=== PATIENT | female | born 1995 | race Caucasian/White ===

== ENCOUNTER 2019-12-21 10:00 | Outpatient (RCR) | payer OTHER, SELFPAY ==
--- NOTE | ~2019-12-21 | US_ITS ---
EXAMINATION: US OB limited w BPP DATE: 12/21/2019 11:22 INDICATION: Post dates, third trimester TECHNIQUE: Real-time pelvic ultrasound was performed. The interpreting radiologist was not present fo r the study. COMPARISON: None. FINDINGS: There is a single living fetus in vertex presentation. The placenta is fundal. heart rate is 12 9 beats per minute (bpm). The amniotic fluid index is 6.7 cm which is low (normal range: 7.0 cm to 19 .4 cm). Biophysical profile performed by the technologist: breathing (30 sec sustained breathing in 30 minutes): 0 out of 2 movement (3 gross body movements in 30 minutes): 2 out of 2 tone (one episode of vcoeexq-mvorndwvw-ajwmiew limb movement): 2 out of 2 Amniotic fluid pocket (2 cm): 2 out of 2 Total score: 6 out of 8 IMPRESSION: 1. Single living fetus in vertex presentation. 2. Biophysical profile 6 out of 8. 3. Oligohydramnios. Reviewed, dictated and finalized at location A. [facility]
--- NOTE | 2019-12-21 12:49 | WPDOBADMIT ---
Obstetrics - Admit Note Admission Note: 24 y/o at 41 3/7 weeks here for NST / ultrasound. Good movement. Cervix 1cm dilated in office. AVSS NST reactive TOCO: irregular contractions ABD soft, nontender, gravid, vertex EXT nontender US shows HELEN 6.9cm A: IUP at 41 weeks with reassuring status, borderline HELEN. P: She is amenable to induction of labor. Plan Cervidil tomorrow evening. Reviewed risks, benefits, alternatives.
[2019-12-21 13:03] VITALS: BP 100/68; PULSE 84
== END 2019-12-23 12:55 | disposition home or self-care (01) ==
LOC: ANHOBOP 10:00
PROVIDERS: Visit Provider Obstetrics & Gynecology
DX: O48.0 Post-term pregnancy (principal); O41.03X0 Oligohydramnios, third trimester, not applicable or unspecified; Z3A.41 41 weeks gestation of pregnancy
CPT/HCPCS: 59025; 76815; 76819

== ENCOUNTER 2019-12-22 15:49 | Inpatient (IN) | payer OTHER, SELFPAY ==
[2019-12-22] VITALS (20 sets, daily range): BP systolic 105–124; BP diastolic 57–77; PULSE 65–109; RESP 18–20; TEMP 36.8–36.9; O2SAT 100; BMI 25.9
--- NOTE | 2019-12-22 15:49 | LDADM ---
This patient, Brandi Harris, was admitted to Labor/Delivery/Recovery 109 on 12/22/19 at 15:49. Plans for labor, pain management and were discussed with patient. Patient/family oriented to hospital policies and general routines including ID bracelet, bed and alarms, visiting hours, pain management, procedures, bathroom and other care routines, personal items, smoking policy, room service/diet and guest tray routines, infant security routines, and visiting hours. Patient/Family are encouraged to report perceived risks to care and to ask questions if they do not understand what they are told or what they should do. See OBIX for further documentation.
--- NOTE | 2019-12-22 17:00 | WPDOBADMIT ---
Obstetrics - Admit Note Admission Note: record reviewed. Additions to the history and/or subsequent changes in the physical findings follow. 24 y/o at 41 5/7 weeks here for induction of labor. has been uncomplicated. AVSS NST reactive TOCO: rare contractions ABD soft, nontender, gravid. EXT nontender Cervix 50/-2 A: IUP at 41 5/7 weeks desiring induction of labor. P: Cervidil. Anticipate .
[2019-12-22 17:11] LABS: Basophils Percent Auto 0.3 % (0.2-1.2); Eosinophils Absolute Auto 0.1 K/mm3 (0-0.3); Eosinophils Percent Auto 0.9 % (0-4.4); Hematocrit 32.8 % (37.0-47.0); Hemoglobin 10.4 g/dL (12.0-15.0); Immature Granulocyte Absolute 0.17 K/mm3 (0.00-0.031); Immature Granulocyte Percent A 1.9 % (0-0.5); Lymphocytes Absolute Auto 1.91 K/mm3 (0.9-3.2); Lymphocytes Percent Auto 20.8 % (18.3-44.2); Mean Corpuscular HGB Conc 31.7 g/dl (32-36); Mean Corpuscular Hemoglobin 26.4 pg (26-34); Mean Corpuscular Volume 83.2 fl (80-100); Mean Platelet Volume 11.3 fl (7.4-10.4); Monocytes Absolute Auto 0.8 K/mm3 (0.1-0.6); Monocytes Percent Auto 8.2 % (2.6-8.5); Neutrophils Absolute Auto 6.2 K/mm3 (1.3-6.7); Neutrophils Percent Auto 67.9 % (45.5-73.1); Platelet Count Result 180 k/mm3 (150-375); Red Blood Count 3.94 M/mm3 (4.2-5.4); Red Cell Distribution Width 15.2 % (11.5-14.5); White Blood Count 9.2 K/mm3 (4.5-10.0)
[2019-12-22] MEDS: DINOPROSTONE 10 MG VAG INSERT VAGINAL (17:17)
[2019-12-22] MEDS: LACTATED RINGERS 1,000 ML 125 ML IV CONT (22:11)
[2019-12-22] MEDS: ONDANSETRON INJ 4 MG/2 ML VIAL IV PUSH (23:34)
[2019-12-23] VITALS (54 sets, daily range): BP systolic 93–130; BP diastolic 33–109; PULSE 55–234; RESP 16–20; TEMP 36.3–37; O2SAT 83–100
[2019-12-23] MEDS: LACTATED RINGERS 1,000 ML 125 ML IV CONT (00:06)
--- NOTE | 2019-12-23 00:08 | WPDANESEPPF ---
Anes - Initial Pre Proc Eval Procedure: labor epidural Date/Time: 12/23/19 00:08 Surgeon: Иван Stallworth MD Pre Op Diagnosis: labor pain Pre Op Diagnosis: Induction of Labor Patient Data Age: 24 Gender: F Height: 1.68 m Weight: 73 kg Last Vital Signs Temp 36.9 C 12/23/19 00:05 Pulse 94 12/23/19 00:06 Resp 20 12/23/19 00:05 BP 114/72 12/23/19 00:06 Pulse Ox 100 12/23/19 00:04 Allergies Allergy/AdvReac Type Severity Reaction Status Date / Time nitrofurantoin Allergy Other Verified 11/10/19 13:36 [From Macrobid] FLUOROQUINOLONES Allergy Other Uncoded 11/10/19 13:46 Home Medications Medication Instructions Recorded Confirmed Type PNV cmb#95-ferrous fumarate-FA 1 tablet PO DAILY 11/10/19 11/10/19 History [] Laboratory Tests 12/22/19 12/22/19 12/22/19 17:06 17:06 17:06 WBC 9.2 K/mm3 K/mm3 (4.5-10.0) RBC 3.94 M/mm3 L M/mm3 (4.2-5.4) Hgb 10.4 g/dL L g/dL (12.0-15.0) Hct 32.8 % L % (37.0-47.0) MCV 83.2 fl fl (80-100) MCH 26.4 pg pg (26-34) MCHC 31.7 g/dl L g/dl (32-36) RDW 15.2 % H % (11.5-14.5) Plt Count 180 k/mm3 k/mm3 (150-375) MPV 11.3 fl H fl (7.4-10.4) Immature Gran % (Auto) 1.9 % H % (0-0.5) Neut % (Auto) 67.9 % % (45.5-73.1) Lymph % (Auto) 20.8 % % (18.3-44.2) [place] % (Auto) 8.2 % % (2.6-8.5) Eos % (Auto) 0.9 % % (0-4.4) Baso % (Auto) 0.3 % % (0.2-1.2) Lymph # (Auto) 1.91 K/mm3 K/mm3 (0.9-3.2) [place] # (Auto) 0.8 K/mm3 H K/mm3 (0.1-0.6) Eos # (Auto) 0.1 K/mm3 K/mm3 (0-0.3) Baso # (Auto) 0.0 K/mm3 K/mm3 (0.0-0.1) Abs Immat Gran (auto) 0.17 K/mm3 H K/mm3 (0.00-0.031) Absolute Neuts (auto) 6.2 K/mm3 K/mm3 (1.3-6.7) Absolute Nucleated RBC 0.0 K/mm3 K/mm3 (0.0-0.012) Nucleated RBC % 0.0 % % (0.0-0.2) RPR Pending Blood Type A Positive Antibody Screen Negative Patient hx anesthesia problems: none Family hx anesthesia problems: none PMFSH Family History Family History (Updated 11/10/19 @ 13:48 by Berna Galloway RN) Sibling Asthma Social History Social History Smoking status: Never smoker Second hand tobacco smoke exposure: No Substance use: never Spiritual care concerns: No Anes - Eval Final PreProcedure Day of Procedure 12/23/19 00:08 Patient weight: overweight ASA classification: II Anesthesia type and monitoring: regional epidural Informed Consent: The patient's anesthetic plan and its attendant risks and benefits were discussed with the patient/family/POA. Questions were solicited and answers provided to the satisfaction of the patient/family/POA.
[2019-12-23] MEDS: OXYTOCIN 30 UNITS/NS 500 ML 30 UNITS/500 ML BAG IV CONT (01:15)
--- NOTE | 2019-12-23 02:08 | PM.OBPRVD ---
OB - Delivery Note Procedure Procedure: Patient pushed for a spontaneous vaginal delivery. A nuchal cord x1 was noted. The was delivered through the nuchal. The fetus was delivered atraumatically and placed on the maternal abdomen. The cord was clamped and cut after 1 minute of life. The cord was double clamped and cut and a segment of cord was collected for cord gases. Cord blood was collected for blood type and Coomb's testing. The placenta delivered spontaneously and was noted to be intact. The perineum was inspected and was noted to be intact. There was a right labial laceration. The laceration was repaired with 3-0 vicryl in the usual fashion. The uterus was firm and good hemostasis was noted. The patient and fetus were stable in the delivery room. Intrapartal events: None Induction method: per cervidil protocol Delivery augmentation: rupture of membranes Delivery monitor: external FHT Route of delivery: Episiotomy description: None Laceration Description: Labial Delivery repair: vicryl Specimen: No Estimated blood loss (mL): 250 Anesthesia type: Epidural Disposition: floor () Complications: No immediate complications Baby Date of : 12/23/19 Time of : 01:57 Weeks of gestation at delivery: 41 Infant gender: Female Weight (pounds): 6 Weight (ounces): 6 presentation: vertex position: Right Occiput Anterior Placenta delivery description: Spontaneous cord vessel description: Nuchal Cord score one minute: 8 score five minutes: 9
[2019-12-23] MEDS: OXYTOCIN 30 UNITS/NS 500 ML 30 UNITS/500 ML BAG 125 UNITS IV CONT (02:35)
[2019-12-23] MEDS: BENZOCAINE 20% AER SPR (*SP) 56 GM CAN 1 SPRAY TOPICAL (04:17)
[2019-12-23] MEDS: WITCH HAZEL 40 PADS 1 PAD TOPICAL (04:17)
--- NOTE | 2019-12-23 05:35 | PC.NURSE ---
This patient, Brandi Harris, was received from Labor & Delivery on 12/23/19 at 0444. Patient/family oriented to unit policies and routines
--- NOTE | 2019-12-23 08:03 | PM.OBDSVD ---
DS: Admitting Diagnosis Admitting Diagnosis Admitting Diagnosis: IUP at 41 4/7 weeks DS: Discharge Diagnosis Discharge Diagnosis (1) (normal spontaneous vaginal delivery): Code(s): O80 - Encounter for full-term uncomplicated delivery Status: Acute OB - DS: Summary OB Procedures : None OB Procedures Intrapartum: Spontaneous Vag Delivery OB Procedures: : None DS: Data Data Completed and Pending Pending studies at discharge: Pending at discharge 12/23/19 02:01 Surgical [PTH] Routine Labs on day of discharge: Labs from last 24 hours 12/22/19 12/22/19 12/22/19 17:06 17:06 17:06 WBC 9.2 RBC 3.94 L Hgb 10.4 L Hct 32.8 L MCV 83.2 MCH 26.4 MCHC 31.7 L RDW 15.2 H Plt Count 180 MPV 11.3 H Immature Gran % (Auto) 1.9 H Neut % (Auto) 67.9 Lymph % (Auto) 20.8 [place] % (Auto) 8.2 Eos % (Auto) 0.9 Baso % (Auto) 0.3 Lymph # (Auto) 1.91 [place] # (Auto) 0.8 H Eos # (Auto) 0.1 Baso # (Auto) 0.0 Abs Immat Gran (auto) 0.17 H Absolute Neuts (auto) 6.2 Absolute Nucleated RBC 0.0 Nucleated RBC % 0.0 RPR Pending Blood Type A Positive Antibody Screen Negative Discharge Plan Discharge Attending physician on discharge: Иван Stallworth Discharging Clinician: Иван Stallworth Patient Disposition: Home, Self-Care Activity: pelvic rest Diet: regular Discharge Instructions: Call or return if temperature above 100.4? F, increased abdominal pain, increased vaginal bleeding or any new problems. Stand Alone Forms: General Discharge Information Follow-up/Referrals: Иван Stallworth MD [Physician] - 6 Weeks Discharge Medications: New ibuprofen 600 mg tablet 600 mg PO Q6H PRN (Reason: cramps) Qty: 30 RF: 0 ferrous sulfate 325 mg (65 mg iron) tablet 325 mg PO DAILY Qty: 30 RF: 0 No Action PNV cmb#95-ferrous fumarate-FA [] 28 mg iron- 800 mcg Tablet 1 tablet PO DAILY RF: 0 Date of admission: 12/22/19 15:49 Primary Care Provider: PHYSICIAN,FRUIT TESTER Admitting Provider: Иван Stallworth Attending physician on admission: Иван Stallworth Condition: Stable
[2019-12-23 08:52] LABS: Rapid Plasma Reagin Non-Reactive (NonReactive)
[2019-12-23] MEDS: MULTIVIT/MIN/PREN/FOL AC/IRON TABLET 1 TAB PO (09:14)
[2019-12-23] MEDS: IBUPROFEN 600 MG TABLET PO ×2 (09:15→18:50)
--- NOTE | 2019-12-23 09:35 | PC.NURSE ---
Consult with pt., mother states her wishes were to pump and bottle feed. Mother has put to breast for some feedings and has bottle fed others. Discussed stimulation and milk supply. Mother states she is unsure if she will continue to put infant to breast, pump and bottle feed or formula feed. Reviewed infant feeding cues, frequencies, duration of feedings, feeding elimination flow sheet, and signs of adequate intake. Offered assist with pumping and putting infant to breast. Mother states she will call out if assist is needed.
[2019-12-23] MEDS: DOCUSATE SODIUM 100 MG CAPSULE PO (15:02)
[2019-12-24 05:30] LABS: Hematocrit 31.4 % (37.0-47.0); Hemoglobin 9.7 g/dL (12.0-15.0)
--- NOTE | 2019-12-24 07:29 | WPDANLDPN2 ---
Anes-Prog Note L&D Date/Time: 12/24/19 07:29 Comfortable throughout: labor and delivery Neuraxial method: epidural Epidural/Spinal procedure site: clean & non-tender Neuro status: Neuro function grossly intact. Cardiovascular status: normal Respiratory status: normal Airway patency: baseline Mental status: baseline Post-Op hydration status: normal Vital Signs: Last Vital Signs Temp 36.3 C L 12/23/19 18:45 Pulse 70 12/23/19 18:45 Resp 16 12/23/19 18:45 BP 106/71 12/23/19 18:45 Pulse Ox 98 12/23/19 05:00 Pain score (VAS): 02/27 I/O: Intake & Output 12/23/19 12/23/19 12/24/19 15:59 23:59 07:59 Intake Total 240 Balance 240 Post-procedural complaints: none Patient feedback: Patient satisfied with anesthetic care.
[2019-12-24] MEDS: IBUPROFEN 600 MG TABLET PO (07:53)
[2019-12-24] MEDS: MULTIVIT/MIN/PREN/FOL AC/IRON TABLET 1 TAB PO (07:54)
[2019-12-24] MEDS: DOCUSATE SODIUM 100 MG CAPSULE PO (07:54)
[2019-12-24] MEDS: POLYSACCHARIDE IRON COMPLEX 150 MG CAPSULE PO (07:54)
[2019-12-24] MEDS: WITCH HAZEL 40 PADS 1 PAD TOPICAL (07:54)
[2019-12-24] MEDS: BENZOCAINE 20% AER SPR (*SP) 56 GM CAN 1 SPRAY TOPICAL (07:54)
[2019-12-24 08:00] VITALS: BP 108/60; PULSE 60; RESP 18; TEMP 36.7
--- NOTE | 2019-12-24 08:31 | PM.OBPNVD ---
OB - PN: Subj Subjective Date/time seen: 12/24/19 08:31 Narrative: Pain OK. Would like to go home. OB - PN: Obj Data Labs CBC & Chem 7: 12/24/19 04:55 Labs: Laboratory Results - last 24 hr 12/22/19 12/24/19 17:06 04:55 Hgb 9.7 L Hct 31.4 L RPR Non-reactive OB - PN A/P Plan Comments: A: PPD#1, doing well. P: Home to f/u 6 weeks. Exam Psych: Other: AVSS ABD soft, nontender, fundus firm EXT nontender
--- NOTE | 2019-12-24 09:00 | PC.NURSE ---
Patient was given the opportunity to view the discharge video Mother & Baby Care, The First Two Weeks and to ask questions. Patient declined viewing the video and has been given the mother/baby guide for home reference.
--- NOTE | 2019-12-24 10:00 | PC.NURSE ---
Consult with pt.,pt states she will continue to make the decision how to feed each feeding. Mother states this is how she fed first child for the first moth, then switched to formula feeding. Discussed stimulation and milk supply. Mother has a pump for home use and states if her milk comes in she will begin to pump. Discussed breast stimulation may help her milk come in and to a novoa supply and may give any EBM as part of supplement. Advised mother should supplement at least 25 mls each feeding and offer supplement after each until she knows her milk is in and infant is effectively nursing. Discussed when to increase supplementation. Mother is feeding as required and waking infant to feed if needed. is currently meeting outcomes for weight, output, jaundice and feeding frequencies. Mother states she feels confident to continue effective at home. Reviewed transition to breast milk, signs of adequate intake, and engorgement/relief. Instructed to call ICP if intake/output less than required. Reviewed regular medications mother is taking. Information provided per [place]. Reviewed community resources on the [facility] website and in the Mom/Baby guide. Information on outpatient services provided. Mother has no further questions at this time.
--- NOTE | 2019-12-24 10:54 | PC.NURSE ---
Self care and infant care discharge instructions given including follow up visit date and time. Pt. verbalized understanding. No questions or concerns voiced. Very pleasant. at side.
[2019-12-25 09:57] VITALS: BP 115/64; PULSE 77; RESP 16; TEMP 36.9; O2SAT 99
== END 2019-12-24 13:25 | disposition home or self-care (01) | DRG 807 ==
LOC: ANHLDR 15:54 → ANHOB2 12-23 05:28
PROVIDERS: Student in an Organized Health Care Education/Training Program; Admitting Provider Obstetrics & Gynecology; Visit Provider Obstetrics & Gynecology
DX: O69.81X0 Labor and delivery complicated by cord around neck, without compression, not applicable or unspecified (principal); Z37.0 Single live birth; Z3A.41 41 weeks gestation of pregnancy; O36.8330 Maternal care for abnormalities of the fetal heart rate or rhythm, third trimester, not applicable or unspecified; O77.0 Labor and delivery complicated by meconium in amniotic fluid; O70.0 First degree perineal laceration during delivery
CPT/HCPCS: 36415; 85014; 85018; 85025; 86592; 86850; 86900; 86901; 88307; A9270; J2405; J2590; J7120

== ENCOUNTER 2020-05-23 23:21 | Emergency (ER) | payer OTHER, SELFPAY ==
[2020-05-23 23:23] VITALS: BP 118/71; PULSE 78; RESP 16; TEMP 36.4; O2SAT 98
[2020-05-24] LABS: Add Urine Microscopic? YES; Appearance Urine Clear (Clear); Bilirubin Urine Negative (Negative); Blood Urine 1+ (Negative); Color Urine Yellow (Yellow); Glucose Urine UA Negative (Negative); Ketones Urine Negative (Negative); Leukocyte Esterase Ur 2+ LEU/UL (Negative); Nitrate Urine Negative (Negative); Protein Urine Negative (Negative); RBC Urine 0-2 /hpf (0-2); Squamous Epithelial Cell Urine Few /hpf (Few); Urobilinogen Urine Negative mg/dL (<2.0)
[2020-05-24 00:26] LABS: Specific Grav Ur 1.001 (1.001-1.035)
--- NOTE | 2020-05-24 01:21 | ED.FEMALEGU ---
HPI - Female Genitourinary General Chief complaint: Urogenital-Female Stated complaint: really bad uti Time Seen by Provider: 05/23/20 23:57 Source: patient Mode of arrival: ambulatory Limitations: no limitations History of Present Illness HPI Narrative: Patient is a 25 year old female who presents complaining of dysuria and frequency starting this pm. She reports a history of UTI, last one over a year age. She denies vaginal discharge, STD exposure or pelvic pain. She has not taken any kssw-tvu-nyfhaxs medications prior to arrival. She denies all other complaints at this time. elicited complaint: UTI Related Data Home Medications Medication Instructions Recorded Confirmed PNV cmb#95-ferrous fumarate-FA 1 tablet PO DAILY 11/10/19 11/10/19 [] Allergies Allergy/AdvReac Type Severity Reaction Status Date / Time nitrofurantoin Allergy Other Verified 11/10/19 13:36 [From Macrobid] FLUOROQUINOLONES Allergy Other Uncoded 11/10/19 13:46 Review of Systems Review of Systems: Narrative: CONSTITUTIONAL: Denies fever, chills, or sweats. EYES: Denies visual changes, redness, or discharge. ENT: Denies rhinorrhea, congestion, sore throat, or otalgia. CARDIOVASCULAR: Denies chest pain, palpitations, or edema. RESPIRATORY: Denies cough or dyspnea. GASTROINTESTINAL: Denies abdominal pain, nausea, vomiting, or diarrhea. GENITOURINARY: Reports dysuria and frequency SKIN: Denies rash or itching. MUSCULOSKELETAL: Denies back pain, joint pain, or myalgia. NEUROLOGIC: Denies headache, numbness, dizziness, or weakness. PSYCHIATRIC: Denies anxiety or depression. [facility] Past Medical History Medical History (Updated 05/24/20 @ 01:31 by AMY Snow) UTI (urinary tract infection) Surgical History Surgical History (Updated 05/24/20 @ 01:32 by AMY Snow) No significant past surgical history Family History Family History Sibling Asthma Social History Social History Smoking status: Never smoker Second hand tobacco smoke exposure: No Substance use: never Spiritual care concerns: No Comments At the time of signature, I have reviewed and agree with nursing past medical, surgical, social, and family history unless otherwise noted. Please see nursing chart for further information. There is no relevant family history pertinent to the presenting complaint. Exam Narrative: Exam Narrative: GENERAL: Well-appearing, well-nourished, and in no acute distress. HEAD: Normocephalic, atraumatic. EYES: No redness or drainage. Conjunctiva are normal. ENT: Mucous membranes pink and moist. CHEST: No respiratory distress. Clear to auscultation. HEART: Regular rate and rhythm. GI: Soft, nontender without rebound, or guarding. EXTREMITIES: Normal range of motion. SKIN: Warm, dry, no rash. NEURO: No focal deficits. Alert and oriented x3. Gait steady. PSYCH: Normal affect. No signs of depression or anxiety. Course Vital Signs Vital signs: Vital Signs Temperature 36.4 C L 05/23/20 23:23 Pulse Rate 78 05/23/20 23:23 Respiratory Rate 16 05/23/20 23:23 Blood Pressure 118/71 05/23/20 23:23 Pulse Oximetry 98 05/23/20 23:23 Temperature 36.4 C L 05/23/20 23:23 Pulse Rate 78 05/23/20 23:23 Respiratory Rate 16 05/23/20 23:23 Blood Pressure 118/71 05/23/20 23:23 Pulse Oximetry 98 05/23/20 23:23 MDM - Female Genitourinary MDM Narrative Medical decision making narrative: Patient's UA shows leukocytes and blood. Patient to be treated for UTI at this time. Discussed plan of care with patient. Patient is stable for discharge home with outpatient follow-up as discussed. Differential Diagnosis Differential diagnosis: Likely urinary tract infection, bacterial vaginosis, trichomoniasis and vaginitis Lab Data Attestation: I reviewed the patient's lab results.
== END 2020-05-24 01:50 | disposition home or self-care (01) ==
PROVIDERS: Emergency Medicine; Emergency Provider Nurse Practitioner
DX: N30.01 Acute cystitis with hematuria (principal)
CPT/HCPCS: 81001; 81025; 87077; 87086; 87088; 99283; A9270

== ENCOUNTER 2023-07-15 11:11 | Emergency (ER) | payer OTHER, SELFPAY ==
--- NOTE | 2023-07-15 11:19 | ED.FEMALEGU ---
HPI - Female Genitourinary General Chief complaint: Urogenital-Female Stated complaint: Bacterial vaginosis test Time Seen by Provider: 07/15/23 11:30 Source: patient Mode of arrival: ambulatory Limitations: no limitations History of Present Illness HPI Narrative: Brandi is a 28-year-old female patient presenting to the clinic today with complaints of vaginal discharge and odor x6 days. She reports she had unprotected intercourse with a new partner 7 days ago. Reports that she is having some white vaginal discharge with odor. States that there is mild amount of itching and burning. Denies any urinary symptoms. Related Data Home Medications Medication Instructions Recorded Confirmed vit no.95-ferrous 1 tablet PO DAILY 11/10/19 11/10/19 fumarate 28 mg-folic acid 800 mcg tablet () Allergies Allergy/AdvReac Type Severity Reaction Status Date / Time ciprofloxacin [From Cipro] Allergy Other Verified 07/15/23 11:33 nitrofurantoin Allergy Other Verified 07/15/23 11:31 [From Macrobid] FLUOROQUINOLONES Allergy Other Uncoded 07/15/23 11:31 Review of Systems Review of Systems: Pertinent positives per HPI. Patient denies any fever, chills, rash, headache, visual changes, dizziness, cough, runny nose, sore throat, shortness of breath, chest pain, palpitations, nausea, vomiting, diarrhea, constipation, abdominal pain, or any urinary issues. PMFSH Past Medical History Medical History UTI (urinary tract infection) Surgical History Surgical History No significant past surgical history Family History Family History Sibling Asthma Social History Social History Smoking status: Never smoker Second hand tobacco smoke exposure: No Substance use: never Spiritual care concerns: No Comments At the time of my signature, I reviewed and agree with the nursing past medical, surgical, social, and family history. There is no relevant family history pertinent to the patient complaint. Exam Narrative: General: Well-developed, well nourished, in no apparent distress Head: Normocephalic, atraumatic. Cardio: Regular rate and rhythm, s1 and s2 normal, no murmur appreciated. Resp: Clear to auscultation bilaterally, no rhonchi, rales, wheezing or rubs. Abdomen: Soft, pliable, bowel sounds present in all quadrants, non-tender to palpation, no CVAT tenderness. : Pelvic exam performed with (Clarissa GODOY) at bedside. Verbal consent obtained from patient. Normal external female genitalia without lesions or masses, Urinary meatus: patent without discharge, Vagina: No lesions, masses, or discharge, Cervix: pink without mass, lesions,or tenderness. White thick vaginal discharge in the pelvic vault. Adnexa: without palpable mass or tenderness. Course Course Emergency Course: Portions of this record may have been created with voice recognition software. Level of Care: Express Care Visit Vital Signs Vital signs: Vital Signs Temperature 36.1 C L 07/15/23 11:30 Pulse Rate 82 07/15/23 11:30 Respiratory Rate 18 07/15/23 11:30 Blood Pressure 103/59 L 07/15/23 11:30 Pulse Oximetry 99 07/15/23 11:30 Oxygen Delivery Room Air 07/15/23 11:30 Temperature 36.1 C L 07/15/23 11:30 Pulse Rate 82 07/15/23 11:30 Respiratory Rate 18 07/15/23 11:30 Blood Pressure 103/59 L 07/15/23 11:30 Pulse Oximetry 99 07/15/23 11:30 Oxygen Delivery Room Air 07/15/23 11:30 Vital signs reviewed MDM - Female Genitourinary MDM Narrative Medical decision making narrative: At the time of visit patient is resting comfortably on the exam table. Patient appears to be nontoxic. Labs: BV, chlamydia, gonorrhea, trich genital, and yeast cultures
[2023-07-15 11:30] VITALS: BP 103/59; PULSE 82; RESP 18; TEMP 36.1; O2SAT 99
[2023-07-15 18:32] LABS: Trichomonas Vag PCR NOT DETECTED (NOT DETECTE)
[2023-07-15 18:55] LABS: Chlamydia trachomatis NOT DETECTED (NOT DETECTE); Neisseria gonorrhoeae PCR NOT DETECTED (NOT DETECTE)
[2023-07-17 10:44] LABS: Bacterial Vaginosis POSITIVE (NEGATIVE)
== END 2023-07-15 12:22 | disposition home or self-care (01) ==
PROVIDERS: Emergency Provider Nurse Practitioner Family; Referring Provider Emergency Medicine
DX: N89.8 Other specified noninflammatory disorders of vagina (principal)
CPT/HCPCS: 81513; 87070; 87077; 87491; 87591; 87661; 99214; G0463